=== PATIENT | female | born 1975 | race Two or more races ===

== ENCOUNTER 2023-11-19 22:41 | Inpatient (IN) | payer OTHER ==
[~2023-11-19] VITALS: Ht 162.6 cm; Wt 86.2 kg
[2023-11-20] MEDS: LevETIRAcetam 1,500 MG in DEXTROSE 5%-WATER 100 ML IV ONE (00:37)
[2023-11-20] MEDS: LORazepam 2 MG/ML VIAL IVP ONE (00:37)
[2023-11-20 00:44] LABS: BASOPHILS % (AUTO) 0.4 % (0.0-2.0); HEMATOCRIT 39.1 % (36-46); HEMOGLOBIN 13.1 g/dL (12.0-16.0); LYMPHOCYTES # (AUTO) 3.6 K/uL (1.0-4.8); LYMPHOCYTES % (AUTO) 31.6 % (22.0-44.0); MEAN CORPUSCULAR HGB CONC 33.6 G/dL (31.0-37.0); MEAN CORPUSCULAR VOLUME 89 fL (80-100); MONOCYTES # (AUTO) 1.1 K/uL (0.1-1.0); MONOCYTES % (AUTO) 9.9 % (2.0-9.0); NEUTROPHILS # (AUTO) 6.3 K/uL (1.8-7.7); NEUTROPHILS % (AUTO) 55.1 % (40.0-70.0); PLATELET COUNT (AUTO) 345 K/uL (150-450); RED BLOOD CELL COUNT(AUTO) 4.37 MIL/uL (4.00-5.20); RED CELL DISTRIBUTION WIDTH 12.9 % (11.5-14.5); WHITE BLOOD COUNT (AUTO) 11.4 K/uL (4.5-11.0)
[2023-11-20 00:55] LABS: ANION GAP 9 mmol/L (8-16); CALCIUM, TOTAL 8.4 mg/dL (8.8-10.5); CARBON DIOXIDE 25 mmol/L (22-29); CHLORIDE 104 mmol/L (98-107); CREATININE 0.75 mg/dL (0.60-1.30); GLOMERULAR FILTR. RATE CALC > 60 mL/min (>60); GLUCOSE,RANDOM 116 mg/dL (70-110); POTASSIUM 3.6 mmol/L (3.5-5.1); SODIUM SERUM 138 mmol/L (136-145); UREA NITROGEN, BLOOD 19 mg/dL (7-18)
[2023-11-20 01:02] LABS: ALANINE AMINOTRANSFERASE 18 U/L (12-78); ALKALINE PHOSPHATASE 90 U/L (46-116); ASPARTATE AMINOTRANSFERASE 15 U/L (15-37); BILIRUBIN,TOTAL 0.3 mg/dL (0.1-1.0); TOTAL PROTEIN, SERUM 6.6 g/dL (6.4-8.2)
[2023-11-20 01:34] LABS: ALCOHOL, BLOOD (SERUM) < 3 mg/dL (0-10)
[2023-11-20 03:27] LABS: COVID AG,FIA SOURCE NASAL SWAB
[2023-11-20 03:52] LABS: SARS-COV2 (COVID) ANTIGEN,FIA Negative (Negative)
[2023-11-20] MEDS ORDERED: LISI-894 PO (07:30)
[2023-11-20] MEDS: DOCUSATE SODIUM 100 MG CAPSULE PO SCH (08:17)
[2023-11-20 10:39] VITALS: BP 119/75; PULSE 60; RESP 18; TEMP 98
[2023-11-20] MEDS ORDERED: SODIUM CHLORIDE 0.9% 500 ML IV ONE (10:55)
[2023-11-20] MEDS ORDERED: SODIUM CHLORIDE 0.9% 1,000 ML ONE (10:56)
[2023-11-20] MEDS ORDERED: LevETIRAcetam 500 MG in DEXTROSE 5%-WATER 100 ML IV SCH (12:00)
[2023-11-20] MEDS: SUMAtriptan SUCCINATE 25 MG TABLET PO PRN (12:20)
[2023-11-20 12:59] LABS: APPEARANCE,URINE CLEAR (CLEAR); BILIRUBIN,URINE NEGATIVE (NEGATIVE); COLOR,URINE COLORLESS (YELLOW); GLUCOSE, URINE (UA) NEGATIVE (NEGATIVE); KETONES,URINE NEGATIVE (NEGATIVE); LEUKOCYTE ESTERASE ,URINE SMALL (NEGATIVE); NITRATE,URINE NEGATIVE (NEGATIVE); OCCULT BLOOD,URINE NEGATIVE (NEGATIVE); PROTEIN,URINE NEGATIVE (NEGATIVE); UROBILINOGEN,URINE <=1.0 mg/dL (<=1.0)
[2023-11-20 13:04] LABS: BACTERIA,URINE Moderate /HPF (None Seen); RBC,URINE None Seen /HPF (0-2); SQUAMOUS EPITHELIAL CELL,UR Few /LPF (None Seen)
[2023-11-20 13:06] LABS: ALCOHOL, URINE DRUG SCREEN NEGATIVE (NEGATIVE); AMPHET/METH SCREEN,URINE NEGATIVE (NEGATIVE); BARBITURATE SCREEN, URINE NEGATIVE (NEGATIVE); BENZODIAZEPINES SCREEN,URINE NEGATIVE (NEGATIVE); CANNABINOID SCREEN,URINE NEGATIVE (NEGATIVE); COCAINE SCREEN,URINE NEGATIVE (NEGATIVE); METHADONE SCREEN, URINE NEGATIVE (NEGATIVE); OPIATE SCREEN,URINE NEGATIVE (NEGATIVE); PHENCYCLIDINE SCREEN,URINE NEGATIVE (NEGATIVE)
[2023-11-20 19:56] VITALS: BP 108/64; PULSE 70; RESP 17; TEMP 98.6
[2023-11-20] MEDS: LevETIRAcetam 500 MG TABLET PO SCH (20:12)
[2023-11-20] MEDS: ACETAMINOPHEN 325 MG TABLET PO PRN (20:13)
[2023-11-20 20:52] VITALS: BP 134/86; PULSE 75; RESP 20; TEMP 98.7
[2023-11-20] MEDS: LORazepam 2 MG/ML VIAL IVP PRN (21:08)
[2023-11-21] VITALS (7 sets, daily range): BP systolic 123–136; BP diastolic 53–87; PULSE 55–82; RESP 18–20; TEMP 97.5–98.3
[2023-11-21 08:02] LABS: BASOPHILS % (AUTO) 0.5 % (0.0-2.0); EOSINOPHILS % (AUTO) 3.7 % (1.0-6.0); HEMATOCRIT 39.7 % (36-46); HEMOGLOBIN 13.4 g/dL (12.0-16.0); LYMPHOCYTES # (AUTO) 3.3 K/uL (1.0-4.8); LYMPHOCYTES % (AUTO) 39.4 % (22.0-44.0); MEAN CORPUSCULAR HEMOGLOBIN 30.4 pg (26.0-34.0); MEAN CORPUSCULAR HGB CONC 33.8 G/dL (31.0-37.0); MEAN CORPUSCULAR VOLUME 90 fL (80-100); MONOCYTES # (AUTO) 1.1 K/uL (0.1-1.0); MONOCYTES % (AUTO) 12.4 % (2.0-9.0); NEUTROPHILS # (AUTO) 3.7 K/uL (1.8-7.7); PLATELET COUNT (AUTO) 327 K/uL (150-450); RED BLOOD CELL COUNT(AUTO) 4.41 MIL/uL (4.00-5.20); RED CELL DISTRIBUTION WIDTH 13.1 % (11.5-14.5); WHITE BLOOD COUNT (AUTO) 8.5 K/uL (4.5-11.0)
[2023-11-21 08:19] LABS: ANION GAP 8 mmol/L (8-16); CALCIUM, TOTAL 8.7 mg/dL (8.8-10.5); CARBON DIOXIDE 25 mmol/L (22-29); CHLORIDE 106 mmol/L (98-107); CREATININE 0.89 mg/dL (0.60-1.30); GLOMERULAR FILTR. RATE CALC > 60 mL/min (>60); GLUCOSE,RANDOM 82 mg/dL (70-110); POTASSIUM 4.4 mmol/L (3.5-5.1); SODIUM SERUM 139 mmol/L (136-145); UREA NITROGEN, BLOOD 20 mg/dL (7-18)
[2023-11-21] MEDS ORDERED: SODIUM CHLORIDE 0.9% 100 ML ONE (12:37)
[2023-11-21] MEDS: CefTRIAXone 1 GM/DEXTROSE 50 ML IV SCH (12:59)
[2023-11-21] MEDS: MAGNESIUM HYDROXIDE SUSPENSION 30 ML UDCUP PO PRN (14:46)
[2023-11-21] MEDS: LORazepam 2 MG/ML VIAL IVP PRN (20:38)
[2023-11-21] MEDS: LevETIRAcetam 500 MG TABLET PO ONE (22:05)
[2023-11-22 03:50] VITALS: BP 117/73; PULSE 65; RESP 18; TEMP 98.2
[2023-11-22 08:01] VITALS: BP 118/66; PULSE 59; RESP 18; TEMP 97.8
[2023-11-22] MEDS: LevETIRAcetam 500 MG TABLET PO SCH (08:30)
[2023-11-22] MEDS ORDERED: SODIUM CHLORIDE 0.9% 250 ML IV ONE (14:20)
[2023-11-22 20:05] VITALS: BP 126/71; PULSE 82; RESP 18; TEMP 98.7
[2023-11-22 20:55] VITALS: BP 147/85; PULSE 76; RESP 20; TEMP 98.1
[2023-11-22] MEDS: LevETIRAcetam 500 MG TABLET PO ONE (21:40)
[2023-11-23 04:45] VITALS: BP 101/63; PULSE 68; RESP 18; TEMP 98.1
[2023-11-23] MEDS: LevETIRAcetam 500 MG TABLET PO SCH (08:21)
[2023-11-23 08:23] VITALS: BP 111/57; PULSE 60; RESP 18; TEMP 98.2
[2023-11-23] MEDS: SUMAtriptan SUCCINATE 100 MG TABLET PO PRN (15:41)
[2023-11-23 19:26] VITALS: BP 114/74; PULSE 74; RESP 18; TEMP 98.6
[2023-11-23] MEDS: TOPIRAMATE 100 MG TABLET PO SCH (20:15)
[2023-11-23 22:59] VITALS: BP 145/75; PULSE 86; RESP 18; TEMP 98.2
[2023-11-24 04:43] VITALS: BP 98/59; PULSE 68; RESP 18; TEMP 97.6
[2023-11-24 10:23] VITALS: BP 85/59; PULSE 64; RESP 19; TEMP 98
[2023-11-24 19:35] VITALS: BP 107/66; PULSE 66; RESP 18; TEMP 98
[2023-11-24 22:18] VITALS: BP 154/79; RESP 20
[2023-11-24 23:18] VITALS: BP 110/75; PULSE 71; RESP 18; TEMP 98.5
[2023-11-25 05:00] VITALS: BP 104/71; PULSE 70; RESP 20; TEMP 97.8
[2023-11-25 07:52] VITALS: BP 113/63; PULSE 66; RESP 18; TEMP 97.9
[2023-11-25 10:57] VITALS: BP 114/67; PULSE 64; RESP 18; TEMP 97.7
[2023-11-25] MEDS: SUMAtriptan SUCCINATE 6 MG/0.5 ML VIAL SQ ONE (14:23)
[2023-11-25] MEDS: KETOROLAC TROMETHAMINE 15 MG/ML VIAL IVP ONE (14:24)
[2023-11-25 16:23] VITALS: BP 100/66; PULSE 69; RESP 16; TEMP 98.3
[2023-11-25 20:00] VITALS: BP 110/72; PULSE 65; RESP 17; TEMP 98.1
[2023-11-25] MEDS: LevETIRAcetam 500 MG TABLET PO SCH (21:39)
[2023-11-25] MEDS: METOCLOPRAMIDE HCL 5 MG/ML 2 ML VIAL IVP PRN (22:43)
[2023-11-26 00:20] VITALS: BP 98/59; PULSE 61; RESP 18; TEMP 98.3
[2023-11-26 04:55] VITALS: BP 98/72; PULSE 63; RESP 18; TEMP 97.9
[2023-11-26 07:58] VITALS: BP 97/65; PULSE 60; RESP 16; TEMP 97.6
[2023-11-26 16:10] VITALS: BP 107/66; PULSE 75; RESP 16; TEMP 98.6
[2023-11-26] MEDS: LORazepam 1 MG TABLET PO ONE (18:48)
[2023-11-26 19:39] VITALS: BP 113/71; PULSE 70; RESP 17; TEMP 98.7
[2023-11-26] MEDS: SUMAtriptan SUCCINATE 6 MG/0.5 ML VIAL SQ PRN (22:21)
[2023-11-26 23:50] VITALS: BP 113/69; PULSE 63; RESP 18; TEMP 98.5
[2023-11-27 04:21] VITALS: BP 107/68; PULSE 59; RESP 18; TEMP 98
[2023-11-27 07:12] LABS: BASOPHILS % (AUTO) 0.6 % (0.0-2.0); EOSINOPHILS % (AUTO) 3.7 % (1.0-6.0); HEMATOCRIT 42.1 % (36-46); HEMOGLOBIN 14.3 g/dL (12.0-16.0); LYMPHOCYTES # (AUTO) 3.9 K/uL (1.0-4.8); LYMPHOCYTES % (AUTO) 40.4 % (22.0-44.0); MEAN CORPUSCULAR HEMOGLOBIN 30.3 pg (26.0-34.0); MEAN CORPUSCULAR HGB CONC 33.8 G/dL (31.0-37.0); MEAN CORPUSCULAR VOLUME 90 fL (80-100); MONOCYTES % (AUTO) 10.8 % (2.0-9.0); NEUTROPHILS # (AUTO) 4.3 K/uL (1.8-7.7); NEUTROPHILS % (AUTO) 44.5 % (40.0-70.0); PLATELET COUNT (AUTO) 385 K/uL (150-450); RED BLOOD CELL COUNT(AUTO) 4.71 MIL/uL (4.00-5.20); RED CELL DISTRIBUTION WIDTH 12.9 % (11.5-14.5); WHITE BLOOD COUNT (AUTO) 9.6 K/uL (4.5-11.0)
[2023-11-27 07:18] VITALS: BP 107/72; PULSE 56; RESP 18; TEMP 97.8
[2023-11-27 07:21] LABS: BILIRUBIN,TOTAL 0.4 mg/dL (0.1-1.0); CALCIUM, TOTAL 8.9 mg/dL (8.8-10.5); CREATININE 1.06 mg/dL (0.60-1.30); POTASSIUM 4.1 mmol/L (3.5-5.1); TOTAL PROTEIN, SERUM 7.2 g/dL (6.4-8.2)
[2023-11-27 11:07] VITALS: BP 111/67; PULSE 60; RESP 18; TEMP 97.5
[2023-11-27] MEDS ORDERED: DOCU-385 PO (12:50)
[2023-11-27] MEDS ORDERED: LEVE500T20 PO (12:53)
[2023-11-27] MEDS ORDERED: TOPI100T37 PO (12:55)
[2023-11-27] MEDS ORDERED: ACET-2247 PO (12:56)
[2023-11-27] MEDS ORDERED: LORA2I IVP (12:58)
[2023-11-27] MEDS ORDERED: MAGN-169 PO (12:59)
[2023-11-27] MEDS ORDERED: SUMA100T21 PO (13:01)
[2023-11-27] MEDS ORDERED: SUMA6VIA17 SQ (13:02)
[2023-11-27 15:20] VITALS: BP 97/63; PULSE 69; RESP 18; TEMP 98.2
== END 2023-11-27 18:00 | DRG 101 ==
LOC: EMS 22:43 → 5S 11-20 05:07 → 6S 11-21 17:30 → 5N 11-24 23:00
PROVIDERS: ADMIT Psychiatry & Neurology Psychiatry; ATTEND Internal Medicine
DX: G40.909 Epilepsy, unspecified, not intractable, without status epilepticus (principal); N39.0 Urinary tract infection, site not specified; Z20.822 Contact with and (suspected) exposure to COVID-19; R79.89 Other specified abnormal findings of blood chemistry; R09.02 Hypoxemia; E66.9 Obesity, unspecified; F41.1 Generalized anxiety disorder; G43.809 Other migraine, not intractable, without status migrainosus; I10 Essential (primary) hypertension; Z79.899 Other long term (current) drug therapy; Z68.32 Body mass index [BMI] 32.0-32.9, adult; Z86.73 Personal history of transient ischemic attack (TIA), and cerebral infarction without residual deficits; Z98.891 History of uterine scar from previous surgery
CPT/HCPCS: 70450; 70551; 71045; 80048; 80053; 80307; 81001; 83735; 84443; 85025; 87086; 87186; 95816; 99291; G0480; J0696; J0712; J1885; J2060; J2765; J3030; J7030; J7040; J7050; J7060; 36415-L1; 36415-TC

== ENCOUNTER 2024-06-18 21:31 | Inpatient (IN) | payer OTHER ==
[~2024-06-18] VITALS: Ht 160 cm; Wt 87.0 kg
[~2024-06-18 21:31] MED LIST: ACET-2247 PO; DOCU-385 PO; FAMO20 PO; LEVE-71 PO; MAGN-169 PO; SUMA100T21 PO; SUMA6VIA17 SQ; TOPI100T37 PO
[2024-06-18 23:30] LABS: BASOPHILS % (AUTO) 0.4 % (0.0-2.0); EOSINOPHILS % (AUTO) 2.1 % (1.0-6.0); HEMATOCRIT 39.6 % (36-46); LYMPHOCYTES # (AUTO) 3.6 K/uL (1.0-4.8); LYMPHOCYTES % (AUTO) 36.2 % (22.0-44.0); MEAN CORPUSCULAR HGB CONC 32.9 G/dL (31.0-37.0); MEAN CORPUSCULAR VOLUME 91 fL (80-100); MONOCYTES # (AUTO) 0.9 K/uL (0.1-1.0); MONOCYTES % (AUTO) 8.8 % (2.0-9.0); NEUTROPHILS # (AUTO) 5.3 K/uL (1.8-7.7); NEUTROPHILS % (AUTO) 52.5 % (40.0-70.0); PLATELET COUNT (AUTO) 341 K/uL (150-450); RED BLOOD CELL COUNT(AUTO) 4.35 MIL/uL (4.00-5.20)
[2024-06-18 23:33] LABS: APPEARANCE,URINE CLEAR (CLEAR); BILIRUBIN,URINE NEGATIVE (NEGATIVE); COLOR,URINE LIGHT YELLOW (YELLOW); GLUCOSE, URINE (UA) NEGATIVE (NEGATIVE); KETONES,URINE NEGATIVE (NEGATIVE); LEUKOCYTE ESTERASE ,URINE LARGE (NEGATIVE); NITRATE,URINE NEGATIVE (NEGATIVE); OCCULT BLOOD,URINE NEGATIVE (NEGATIVE); PH,URINE 6.5 (5.0-8.0); PH,URINE DRUG SCREEN 6.5 (5.0-8.0); PROTEIN,URINE NEGATIVE (NEGATIVE); SPECIFIC GRAVITIY, URINE 1.024 (1.003-1.030); UROBILINOGEN,URINE <=1.0 mg/dL (<=1.0)
[2024-06-18 23:40] LABS: ANION GAP 8 mmol/L (8-16); CALCIUM, TOTAL 8.2 mg/dL (8.8-10.5); CARBON DIOXIDE 22 mmol/L (22-29); CHLORIDE 104 mmol/L (98-107); CREATININE 0.99 mg/dL (0.60-1.30); GLOMERULAR FILTR. RATE CALC 59 mL/min (>60); GLUCOSE,RANDOM 92 mg/dL (70-110); POTASSIUM 3.8 mmol/L (3.5-5.1); SODIUM SERUM 134 mmol/L (136-145); UREA NITROGEN, BLOOD 18 mg/dL (7-18)
[2024-06-18 23:41] LABS: ALCOHOL, URINE DRUG SCREEN NEGATIVE (NEGATIVE); AMPHET/METH SCREEN,URINE NEGATIVE (NEGATIVE); BACTERIA,URINE None Seen /HPF (None Seen); BARBITURATE SCREEN, URINE NEGATIVE (NEGATIVE); BENZODIAZEPINES SCREEN,URINE NEGATIVE (NEGATIVE); CANNABINOID SCREEN,URINE NEGATIVE (NEGATIVE); COCAINE SCREEN,URINE NEGATIVE (NEGATIVE); METHADONE SCREEN, URINE NEGATIVE (NEGATIVE); OPIATE SCREEN,URINE NEGATIVE (NEGATIVE); PHENCYCLIDINE SCREEN,URINE NEGATIVE (NEGATIVE); RBC,URINE None Seen /HPF (0-2); SQUAMOUS EPITHELIAL CELL,UR Few /LPF (None Seen)
[2024-06-18 23:47] LABS: ALANINE AMINOTRANSFERASE 15 U/L (12-78); ALBUMIN 2.9 g/dL (3.4-5.0); ALKALINE PHOSPHATASE 86 U/L (46-116); ASPARTATE AMINOTRANSFERASE 14 U/L (15-37); BILIRUBIN,TOTAL 0.2 mg/dL (0.1-1.0); CREATINE KINASE, TOTAL ONLY 54 U/L (26-192); TOTAL PROTEIN, SERUM 7.1 g/dL (6.4-8.2)
[2024-06-18 23:49] LABS: LACTIC ACID 0.9 mmol/L (0.4-2.0)
[2024-06-18] MEDS: LevETIRAcetam 1,500 MG in DEXTROSE 5%-WATER 100 ML IV ONE (23:54)
[2024-06-18] MEDS: ACETAMINOPHEN 325 MG TABLET PO ONE (23:54)
[2024-06-19 00:31] LABS: GLUCOMETER DEV NAME(LOC) ERT.6; GLUCOSE,POINT OF CARE 137 MG/DL (70-110)
[2024-06-19 03:00] VITALS: BP 126/73; PULSE 52; RESP 20; TEMP 98.2; O2SAT 98
[2024-06-19 08:26] VITALS: BP 116/62; PULSE 47; RESP 18; TEMP 97.9; O2SAT 98
[2024-06-19] MEDS ORDERED: MAGNESIUM HYDROXIDE SUSPENSION 30 ML UDCUP PO PRN (11:15)
[2024-06-19] MEDS: LORazepam 2 MG/ML VIAL IVP PRN (14:53)
[2024-06-19 19:40] VITALS: BP 114/64; PULSE 61; RESP 18; TEMP 98.2; O2SAT 96
[2024-06-19] MEDS: TOPIRAMATE 100 MG TABLET PO SCH (20:33)
[2024-06-19] MEDS: LevETIRAcetam 500 MG TABLET PO SCH (20:34)
[2024-06-19] MEDS: ZOLPIDEM TARTRATE 5 MG TABLET PO PRN (20:37)
[2024-06-20 00:50] VITALS: BP 122/71; PULSE 59; RESP 17; O2SAT 98
[2024-06-20 04:53] VITALS: BP 109/71; PULSE 58; RESP 18; TEMP 97.8; O2SAT 94
[2024-06-20] MEDS: ASPIRIN 81 MG CHEWABLE TABLET PO SCH (08:07)
[2024-06-20] MEDS: ATORVASTATIN CALCIUM 20 MG TABLET PO SCH (08:08)
[2024-06-20] MEDS: FAMOTIDINE 20 MG TABLET PO SCH (08:08)
[2024-06-20 08:58] VITALS: BP 103/63; PULSE 51; RESP 19; TEMP 97.8; O2SAT 97
[2024-06-20 12:20] VITALS: BP 113/59; PULSE 64; RESP 18; O2SAT 97
[2024-06-20 18:18] VITALS: BP 116/56; PULSE 73; RESP 18; RESP 20; TEMP 98; O2SAT 99
[2024-06-20 20:18] VITALS: BP 131/65; PULSE 67; RESP 18; TEMP 98.2; O2SAT 99
[2024-06-21 04:04] VITALS: BP 121/85; PULSE 59; RESP 17; TEMP 98.3; O2SAT 97
[2024-06-21 08:40] VITALS: BP 102/63; PULSE 60; RESP 16; TEMP 98.1; O2SAT 97
[2024-06-21] MEDS ORDERED: SUMAtriptan SUCCINATE 100 MG TABLET PO PRN (11:45)
[2024-06-21 12:00] VITALS: BP 113/59; RESP 16; O2SAT 97
[2024-06-21] MEDS: PARoxetine HCL 20 MG TABLET PO ONE (13:00)
[2024-06-21] MEDS ORDERED: ASPI-1450 PO (17:12)
[2024-06-21] MEDS ORDERED: ASPI81TA87 PO (17:14)
[2024-06-21] MEDS ORDERED: ATOR20TA PO (17:14)
[2024-06-21] MEDS ORDERED: PARO-38 PO (17:40)
[2024-06-21] MEDS ORDERED: TOPI100T37 PO (17:40)
[2024-06-21 18:53] VITALS: BP 114/75; RESP 16; O2SAT 94
[2024-06-21 20:27] VITALS: BP 119/75; PULSE 67; RESP 18; TEMP 98.4; O2SAT 94
[2024-06-21] MEDS: DOCUSATE SODIUM 100 MG CAPSULE PO SCH (20:50)
[2024-06-21] MEDS: LevETIRAcetam 500 MG TABLET PO SCH (20:50)
[2024-06-22] MEDS ORDERED: PARoxetine HCL 20 MG TABLET PO SCH (09:00)
== END 2024-06-21 21:07 | DRG 101 ==
LOC: EMS 21:31 → EDH 06-19 02:21 → 6S 06-19 03:29
PROVIDERS: ADMIT Internal Medicine; ATTEND Internal Medicine
DX: G40.909 Epilepsy, unspecified, not intractable, without status epilepticus (principal); G43.909 Migraine, unspecified, not intractable, without status migrainosus; I10 Essential (primary) hypertension; Z76.5 Malingerer [conscious simulation]; Z86.73 Personal history of transient ischemic attack (TIA), and cerebral infarction without residual deficits
CPT/HCPCS: 80053; 80307; 81001; 82140; 82550; 82948; 82962; 83605; 85025; 99285; J0712; J2060; J7060